=== PATIENT | female | born 1975 | race American Indian/Alaskan Native ===

== ENCOUNTER 2017-02-04 05:53 | Observation (INO) | payer BC ==
--- NOTE | 2017-01-30 13:13 | Anesthesia Consultation ---
Anesthesia Consult and Med Hx Date of service: 01/30/17 - Airway Anesthetic Teeth Evaluation: Good ROM Head & Neck: Adequate Mental/Hyoid Distance: Adequate Mallampati Class: Class II Intubation Access Assessment: Probably Good - Pulmonary Exam CTA: Yes - Cardiac Exam Cardiac Exam: RRR - Pre-Operative Health Status ASA Pre-Surgery Classification: ASA3 Proposed Anesthetic Plan: General Nerve Block: TAP - Pulmonary Hx Asthma: Yes Hx Respiratory Symptoms: Yes (Hx of PE in november) - Cardiovascular System Hx Hypertension: Yes (x 6 yrs) - Central Nervous System Hx Psychiatric Problems: No - Endocrine Hx Insulin Dependent Diabetes: Yes - Hematic Hx Anemia: Yes - Other Systems Hx Cancer: No
[2017-01-30 13:24] LABS: Basophils % (Auto) 0.6 % (0.0-1.8); Eosinophils % (Auto) 0.7 % (0.0-4.3); Hematocrit 30.6 % (30.3-42.9); Hemoglobin 10.1 gm/dl (10.1-14.3); Mean Corpuscular HGB Conc 33 % (30-34); Mean Corpuscular Hemoglobin 32 pg (28-32); Mean Corpuscular Volume 96 fl (79-97); Platelet Count 352 K/mm3 (140-440); Red Cell Distribution Width 15.4 % (13.2-15.2); White Blood Count 5.8 K/mm3 (4.5-11.0)
[2017-01-30 13:35] LABS: INR 1.04 (0.87-1.13)
[2017-01-30 13:36] LABS: Partial Thromboplastin Time 38.9 Sec. (24.2-36.6)
[2017-01-30 13:43] LABS: Blood Urea Nitrogen 12 mg/dL (7-17); Calcium 8.7 mg/dL (8.4-10.2); Carbon Dioxide 25 mmol/L (22-30); Glucose 107 mg/dL (65-100)
[2017-01-30 13:44] LABS: Anion Gap 17 mmol/L; Chloride 100.2 mmol/L (98-107); Potassium 3.2 mmol/L (3.6-5.0); Sodium 139 mmol/L (137-145)
--- NOTE | 2017-02-03 19:46 | History and Physical Report ---
History of Present Illness Date of examination: 01/30/17 Chief complaint: Excessive and frequent menstruation with irregular cycle Fibroids of uterus; Intramural Pulmonary Embolism Deep Venous Thrombosis Diabetes Hypertension Hyperlipidemia History of present illness: Past History : 2 Term Births: 2 Living Children: 2 # 1 Comments: [id number] SALES ASSISTANT DISPLAYS History Operations: [facility]'scopic IUD removal (2015) Abnormal PAP: positive Infection History Hx of STD: chlamydia Other: trich Active Medications (reviewed today): OXYCODONE-ACETAMINOPHEN 5-325 MG TABS (OXYCODONE-ACETAMINOPHEN) 1-2po q6h LEVEMIR SOLN (INSULIN DETEMIR SOLN) LOVENOX 110 MG/ML SC SOLN (ENOXAPARIN SODIUM) () bid MIRENA 20 MCG/24HR IUD (LEVONORGESTREL) insert with next PROAIR HFA AERS (ALBUTEROL SULFATE AERS) METFORMIN HCL 1000 MG TABS (METFORMIN HCL) 2 500mg tabs qd TRULICITY SOPN (DULAGLUTIDE SOPN) ATORVASTATIN CALCIUM 20 MG ORAL TABS (ATORVASTATIN CALCIUM) HYDROCHLOROTHIAZIDE 25 MG ORAL TABS (HYDROCHLOROTHIAZIDE) LOTREL 10-40 MG ORAL CAPS (AMLODIPINE BESY-BENAZEPRIL HCL) Current Allergies (reviewed today): No known allergies Past Medical History: Reviewed history from 01/01/2017 and no changes required: Diabetes, Type 2 Hyperlipidemia Hypertension Asthma Pulmonary Embolism (11/2016) Deep Veinous Thrombosis (12/15/2016) Past Surgical History: Reviewed history from 11/22/2016 and no changes required: [facility]'scopic IUD removal (2015) Family History Summary: Reviewed history and no changes required: 02/03/2017 MGF - Has Family History of Colon Cancer - dx'd 70's - Entered On: 11/01/2015 Other family member - Has No Family History of Breast Cancer - Entered On: 2015 Other family member - Has No Family History of Ovarvian Cancer - Entered On: 10/31 Other family member - Has No Family History of DVT/PE on OCP - Entered On: 2015 Other family member - Has No Family History of Biliary Tract Cancer - Entered On : 11/22/2016 Other family member - Has No Family History of Brain Cancer - Entered On: 2016 Other family member - Has No Family History of Kidney/Urinary Tract Cancer - Entered On: 11/22/2016 Other family member - Has No Family History of Pancreatic Cancer - Entered On: Other family member - Has No Family History of Stomach Cancer - Entered On: 11/22 Other family member - Has No Family History of Small Bowel Cancer - Entered On: 11/22/2016 Other family member - Has No Family History of Uterine Cancer - Entered On: 11/22 Social History: Reviewed history from 11/22/2016 and no changes required: Patient is Smoking History: Patient has never smoked. Risk Factors: Smoked Tobacco Use: Never smoker Alcohol use: no PAP Smear History: Date of Last PAP Smear: 11/22/2016 Previous Tobacco Use: Signed On 01/01/2017 Smoked Tobacco Use: Never smoker Smokeless Tobacco Use: Never Drug use: no Previous Alcohol Use: Signed On - 01/01/2017 Alcohol use: no Exercise: yes Times per week: 5 Seatbelt use: 100 % PAP Smear History: Date of Last PAP Smear: 11/22/2016 Review of Systems General Denies fever, chills, sweats, anorexia, fatigue, weakness, malaise, weight loss and sleep disorder. Complains of menorrhagia and abnormal vaginal bleeding. Denies vaginal discharge, incontinence, dysuria, hematuria, urinary frequency, amenorrhea, pelvic pain, genital sores, decreased libido, painful periods, painful sex, urinary urgency, hot flashes, vaginal dryness, vaginal itching and vaginal odor. CV Denies chest pains, palpitations, syncope, dyspnea on exertion, orthopnea, PND and peripheral edema. Resp Denies cough, dyspnea at rest, excessive sputum, hemoptysis, wheezing and pleurisy. GI Denies nausea, vomiting, diarrhea, constipation, change in bowel habits, abdominal pain, melena, hematochezia, jaundice, gas/bloating, indigestion/ heartburn, dysphagia and odynophagia. Endo Denies cold intolerance, heat intolerance, polydipsia, polyphagia, polyuria and unusual weight change. Breast Denies left breast lump, right breast lump, nipple discharge, bloody discharge from nipple, breast pain, abnormal mammogram and breast enlargement. MS Denies back pain, joint pain, joint swelling, muscle cramps, muscle weakness, stiffness, arthritis, sciatica, restless legs, leg pain at night and leg pain with exertion. Derm Denies rash, itching, dryness and suspicious lesions. Neuro Denies paralysis, paresthesias, headache, seizures, tremors, vertigo, transient blindness, frequent falls, frequent headaches and difficulty walking. Psych Denies depression, anxiety, irritability and mood swings. Eyes Denies blurring, diplopia, irritation, discharge, vision loss, eye pain and photophobia. ENT Denies earache, ear discharge, tinnitus, decreased hearing, nasal congestion, nosebleeds, sore throat and hoarseness. Allergy Denies urticaria, allergic rash, hay fever and recurrent infections. Heme Denies abnormal bruising, bleeding and enlarged lymph nodes. Physical Exam Appearance: well developed, well nourished, no acute distress Other Exams Lungs: no rales, rhonchi, or wheezes Heart: S1, S2, no murmur, rub, or gallop Abdomen: soft, non-tender, no masses, bowel sounds normal Skin: no ulcers, xanthomas Lymph: no cervical, axillary, or inguinal adenopathy Extremities: normal alignment, no joint enlargement, crepitus, masses or tenderness; normal tone and strength Genitourinary Exam Vulva: normal, no lesions or discharge Urethral meatus: normal size and location, no lesions or discharge Urethra: no discharge Bladder: no cystocele Vagina: normal appearance, no discharge, lesions. No evidence of cystocele or rectocele. Cervix: normal appearance, no lesions, no discharge Uterus: normal position, midline, mobile Adnexa: no masses or tenderness Impression & Recommendations: Problem # 1: Excessive and frequent menstruation with irregular cycle (ICD- 626.6) (PTB77-S65.1) Diagnosis explained to patient . Questions answered. Discussed with patient various medical and surgical therapies common for treatment: Hormonal/medical therapy,endometrial ablation or hysterectomy. It was extensively discussed with her that ablation/UFE may stop or decrease her bleeding however hysterectomy is the only way to stopped her from having any furhter uterine bleeding. She desires to proceed with hysterectomy. Consent reviewed and signed . Possible laparoscopy or laparotomy explained to patient. The risks and alternatives for this surgery were reviewed with the patient. She was informed of possible bleeding, infection, injury to bowel, bladder, ureters or other adjacent organs. She was informed she may require surgery later to have her ovaries removed for a benign or mailgnant condition. She was alos informed she will not be able to become after her uterus has been removed. The patient was instructed/informed the following: The normal length of hospital stay for this procedure. Nothing to eat or drink after midnight the evening prior to surgery. Clear liquids the day before surgery. Fleets enema the day prior to surgery. She was in structed to discontinue her Metformin 3days prior to the procefure and toe discontinue her Lovnox 48hours prior to the procedure( please see Dr. Joe's note). Pre-op instruction sheets given. Wound care instructions given. Infection precautions reviewed, patient to call for any signs or symptoms of infection. The usual discomforts associated with this procedure were detailed. Proper use of pain medicines was reviewed. Patient was given ample opportunity to have all her questions answered before signing informed consent. Problem # 2: Fibroids of uterus; Intramural (ICD-218.1) (HJJ46-I05.1) Diagnosis explained to patient . Questions answered. Discussed with patient various medical, surgical and radioloigal therapies common for treatment: Hormonal/medical therapy, fibroid embolization, removal of fibroids or hysterectomy. She desires to proceed with hysterectomy Problem # 3: Pulmonary Embolism (ICD-V12.55) (CKQ84-Q88.711) Problem # 4: Hypertension (ICD-401.9) (AQG04-O06) Problem # 5: Asthma (ICD-493.90) (HDN58-R22.909) Problem # 6: Hyperlipidemia (ICD-272.4) (LOL00-T19.5) Problem # 7: Diabetes, Type 2 (ICD-250.00) (FKD20-F39.9) Medications Added to Medication List This Visit: 1) Oxycodone-acetaminophen 5-325 Mg Tabs (Oxycodone-acetaminophen) .... 1-2po q6h 2) Levemir Soln (Insulin detemir soln) 3) Lovenox 110 Mg/ml Sc Soln (enoxaparin Sodium) .... Bid Prescriptions: OXYCODONE-ACETAMINOPHEN 5-325 MG TABS (OXYCODONE-ACETAMINOPHEN) 1-2po q6h #30 x 0 Entered and Authorized by: Charley Jackson MD Method used: Print then Give to Patient RxID: [id number] Medications and Allergies Allergies Allergy/AdvReac Type Severity Reaction Status Date / Time tomato Allergy severe N&V Verified 01/24/17 10:41 Home Medications Medication Instructions Recorded Confirmed Last Taken Type AtorvaSTATin [Lipitor] 20 mg PO QHS 01/30/17 01/30/17 Unknown History Enoxaparin [Lovenox] 100 mg SQ Q12HR 01/30/17 01/30/17 Unknown History Hydrochlorothiazide [HCTZ] 25 mg PO QDAY 01/30/17 01/30/17 Unknown History Insulin Detemir [Levemir] 20 units SQ DAILY 01/30/17 01/30/17 Unknown History Iron 18 mg PO QDAY 01/30/17 01/30/17 Unknown History Metformin HCl [Glucophage] 1,000 mg PO BID 01/30/17 01/30/17 Unknown History Warfarin [Coumadin] 5 mg PO QDAY 01/30/17 01/30/17 01/20/17 History amLODIPine [Norvasc] 5 mg PO DAILY 01/30/17 01/30/17 Unknown History Active Meds: Active Medications Celecoxib (Celebrex) 200 mg PO PREOP NR Stop: 02/04/17 23:59 Famotidine (Pepcid) 20 mg PO PREOP NR Stop: 02/04/17 23:59 Fentanyl (Sublimaze) 100 mcg IV ONCE NR Stop: 02/04/17 23:59 Gabapentin (Neurontin) 600 mg PO PREOP NR Stop: 02/04/17 23:59 Sodium Chloride (Nacl 0.9% 1000 Ml) 1,000 mls @ 100 mls/hr IV DIRECT OSWALDO Cefazolin Sodium (Ancef/Sterile Water 2 Gm/20 Ml) 2 gm in 20 mls @ 80 mls/hr IV PREOP NR PRN Reason: Protocol Stop: 02/04/17 23:59 Midazolam HCl (Versed) 2 mg IV PREOP NR Stop: 02/04/17 23:59 Exam Vital Signs Temp Pulse Resp BP 97.8 F 88 16 120/70 01/30/17 12:55 01/30/17 12:55 01/30/17 12:55 01/30/17 12:55 Results - Labs 01/30/17 13:05 01/30/17 13:05 Assessment and Plan - Patient Problems (1) Excessive and frequent menstruation with irregular cycle Status: Acute (2) Intramural leiomyoma of uterus Status: Acute (3) Personal history of pulmonary embolism Status: Acute (4) Essential (primary) hypertension Status: Acute (5) Uncomplicated asthma Status: Acute Qualifiers: Asthma severity: A (6) Hyperlipidemia Status: Acute Qualifiers: Hyperlipidemia type: H
[~2017-02-04 05:53] MED LIST: ANCEF/STERILE WATER 2 GM/20 ML 2 GM/20 ML SYRINGE IV NR
[2017-02-04] MEDS ORDERED: VERSED IV NR (07:00)
[2017-02-04] MEDS ORDERED: NACL 0.9% 1000 ML 1,000 ML IV SCH ×2 (07:00→14:00)
[2017-02-04] MEDS ORDERED: NEURONTIN PO NR (07:00)
[2017-02-04] MEDS ORDERED: PEPCID PO NR (07:00)
[2017-02-04] MEDS ORDERED: SUBLIMAZE IV NR (07:14)
[2017-02-04] MEDS ORDERED: XYLOCAINE MPF 2% ONE (07:28)
[2017-02-04] MEDS ORDERED: DIPRIVAN 10 MG/ML IV ONE (07:28)
[2017-02-04] MEDS ORDERED: ZEMURON IV ONE (07:28)
[2017-02-04] MEDS ORDERED: DILAUDID ONE ×2 (07:29→11:37)
--- NOTE | 2017-02-04 07:29 | Anesthesia Day of Surgery ---
Anesthesia Day of Surgery - Day of Surgery Patient Examined: Yes Patient H&P Reviewed: Yes Patient is NPO: Yes
[2017-02-04] MEDS ORDERED: MARCAINE 0.5% 0 ML INFILTRATI ONE (07:33)
[2017-02-04] MEDS ORDERED: METHYLENE BLUE ONE (07:33)
[2017-02-04] MEDS ORDERED: NEOSPORIN GU IR ONE ×2 (07:34→10:02)
[2017-02-04] MEDS ORDERED: DECADRON ONE ×2 (07:37→08:47)
[2017-02-04] MEDS ORDERED: MARCAINE-EPI/PF 0.5%-1:200,000 INFILTRATI ONE (07:37)
[2017-02-04] MEDS ORDERED: XYLOCAINE 1% 20 mL ONE (07:37)
[2017-02-04] MEDS ORDERED: CLONIDINE 1,000 MCG/10 ML VIAL EP ONE (07:37)
[2017-02-04] MEDS ORDERED: ZOFRAN ONE (08:47)
[2017-02-04] MEDS ORDERED: NACL 0.9% 100 ML ONE (09:17)
[2017-02-04] MEDS ORDERED: NACL 0.9% 1000 ML 1,000 ML ONE ×2 (09:43→12:34)
[2017-02-04] MEDS ORDERED: NEOSTIGMINE ONE (09:44)
[2017-02-04] MEDS ORDERED: ROBINUL ONE (09:44)
[2017-02-04] MEDS ORDERED: NACL 0.9% IR ONE (10:03)
[2017-02-04] MEDS ORDERED: NACL 0.9% IV ONE (10:04)
[2017-02-04] MEDS ORDERED: DILAUDID IV PRN (11:37)
--- NOTE | 2017-02-04 11:38 | Post Anesthesia Evaluation ---
- Post Anesthesia Evaluation Patient Participated: Yes Airway Patent: Yes Stable Respiratory Function: Yes Nausea/Vomiting: No Temp > 96.8F: Yes Pain Manageable: Yes Adequeate Hydration: Yes Anesthesia Complications: No Block Receding Appropriately: Not Applicable Patient on Ventilator: No
[2017-02-04] MEDS ORDERED: MORPHINE IV PRN ×3 (13:35→13:44)
[2017-02-04] MEDS ORDERED: ZOFRAN IV PRN (13:35)
[2017-02-04] MEDS ORDERED: TYLENOL PO PRN (13:35)
[2017-02-04] MEDS ORDERED: REGLAN IV PRN (13:35)
[2017-02-04] MEDS ORDERED: REGLAN PO PRN (13:35)
[2017-02-04] MEDS ORDERED: ZOFRAN PO PRN (13:35)
[2017-02-04] MEDS ORDERED: D50W (25GM) IV PRN (13:35)
[2017-02-04] MEDS ORDERED: TYLENOL PR PRN (13:35)
[2017-02-04] MEDS ORDERED: LOVENOX SUB-Q SCH (14:30)
--- NOTE | 2017-02-04 14:30 | Operative Report ---
Operative Report Operative Report: Date of procedure: 02/04/2017 Pre-operative diagnosis: 1. Menometrorrhagia 2. Uterine fibroids 3. Bilateral pulmonary emboli 4. Lower extremity DVT 5. Hypertension 6. Diabetes 7. Asthma 8. Hypercholesterolemia Post-operative diagnosis: 1. Menometrorrhagia 2. Uterine fibroids 3. Bilateral pulmonary emboli 4. Lower extremity DVT 5. Hypertension 6. Diabetes 7. Asthma 8. Hypercholesterolemia Procedure name(s): 1. Robotic-assisted total hysterectomy with bilateral salpingectomy Surgeon: Charley Jackson MD Solutions Consultant: Wendy Dobbs Anesthesia: GETA Findings: Uterus was sounded to 11 cm. She had a 5 cm right fundal subserosal fibroid and a left lower uterine segment pedunculated 5 cm fibroid. Small paratubal cysts, small right ovarian cyst. No evidence of an IUD in the intrauterine cavity. Anesthesiologist: Dr. Man Complications: None EBL: 100 mL Procedure: After risks, benefits complications, consequences, and alternatives for this procedure were discussed the patient, and she voiced understanding and desired to proceed, she was taken to the OR where general anesthesia was induced. She was placed in the dorsolithotomy position, exam under anesthesia was unremarkable. She was then prepped and draped in usual sterile fashion. A timeout was performed. Rueda catheter was introduced into the bladder. A bivalve speculum was introduced into the vagina, and the anterior lip of the cervix was grasped with a single-tooth tenaculum. The uterus was to approximately 11 cm. The cervix was progressively dilated to allow the large the V care uterine manipulator. The tenaculum and speculum were removed and the Vcare manipulator was secured in place. A solution saturated laparotomy sponge was placed in the vagina. Sterile gloves were placed and attention was turned to the abdomen. A 10 mm Optiview trocar with scope and camera attached was placed through a midline vertical incision was approximately 10 cm superior to the elevated fundus of the uterus. The trocar with camera attached was placed under direct visualization. No bowel, bladder, ureteral or major blood vessel injury was noted. The abdomen was insufflated. No evidence of the free-floating IUD was noted in the abdomen nor was there any evidence of uterine perforation. Patient was placed in steep Trendelenburg position. Additional trocars were placed in the following positions: 8 mm robotic trocars were placed in the bilateral midclavicular lower abdominal region approximately 10 cm lateral and 15 below the midline incision. An additional 5 mm trocar was placed in the right lateral lower abdominal region approximately 2 cm superior to the anterior superior iliac crest. An additional bladeless 5 mm trocar was placed under direct visualization in the right upper quadrant through an incision. Once the trocars were in the proper position the robot was engaged. The instruments were introduced into the 8 mm trochars. A 0 Vicryl was placed in the fascia of the midline incision using the lateral port and a 5 mm laparoscope and the Raymond-Gopi fascia closure device. The trocar was then reintroduced. Attention was turned to console. Pitressin 10 mL (20 units in the 100 mL's of normal saline) diffuse into the right fundal fibroid and that fibroid was removed and placed in the cul-de-sac for better visualization. The uterus was elevated, the utero-ovarian ligaments were clamped, cauterized and incised bilaterally using 30 W of energy. Then the round ligaments were clamped, cauterized and incised bilaterally. The anterior leaf of the broad ligament was elevated with both blunt and sharp dissection the bladder flap was created. Once the bladder appeared to be away from the operative field attention was turned the posterior leaf of the broad ligaments. The ligaments were elevated and dissected away from the uterine vessels. Once the outline of the Vcare uterine manipulator was visualized, the uterine vessels were clamped and cauterized bilaterally. Once blanching of the uterus was noted, and the posterior outline of the Vcare manipulator was visualized, and confirmed, colpotomy was performed down to the cup of the manipulator. This incision was extended in a circumferential manner to 9:00 and 3:00 positions. The uterine vessels were clamped, cauterized and incised. The colpotomy was completed. The uterus was then delivered through the vagina. Fibroid that was placed in the cul-de-sac was removed through the vaginal incision. Attention was turned to the adnexa. At this point the right ovarian cyst drain no bleeding was noted from the ovary. It was significantly enlarged and heavy. Decision was made to attach the ovary to avascular area of peritoneum on the pelvic sidewall to prevent torsion of the right ovary in the future. Also there was a small paratubal cyst noted attached to the tube. Bilateral salpingectomy was performed and the tubes with the cyst were removed through the vagina. The pelvis was irrigated with solution warm saline. Once hemostasis was noted the vagina was reapproximated using the V LOC 180 suture. The pelvis was again irrigated with warm normal saline. Once hemostasis was noted, Surgicel as well as Percy was applied for further hemostasis. The ureters were noted to be peristaltic and away from the operative field. The abdomen and pelvis were again visualized, no bowel, bladder , ureteral or major vascular injury was noted, hemostasis was also noted. The trocars were removed. The fascial incisions was then ligated. The skin incisions were approximated using 4-0 Vicryl in a subcuticular manner. The incisions were then sealed with Octylseal.The laparotomy sponge was removed from the vagina, and hemostasis was noted. The patient tolerated the procedure well and was taken to recovery room in stable condition. Counts were correct x3. Clear yellow urine was noted draining into the Rueda catheter was noted.
[2017-02-04] MEDS ORDERED: ANCEF/NS 1 GM/50 ML 1 GM/50 ML BAG IV SCH (15:00)
--- NOTE | 2017-02-04 20:50 | Progress Note ---
Assessment and Plan Foot removed from (L) foot, patient had an IVC filter placed yesterday Afeb vss, plan of care explained, questions answered, UO ~60mL/hr, clear, no obvious s/s bleeding Will consider restarting Lovenox tomorrow - Patient Problems (1) Excessive and frequent menstruation with irregular cycle Current Visit: Yes Status: Resolved (2) Intramural leiomyoma of uterus Current Visit: Yes Status: Resolved (3) Personal history of pulmonary embolism Current Visit: Yes Status: Acute (4) Essential (primary) hypertension Current Visit: Yes Status: Chronic (5) Uncomplicated asthma Current Visit: Yes Status: Chronic Qualifiers: Asthma severity: A (6) Hyperlipidemia Current Visit: Yes Status: Chronic Qualifiers: Hyperlipidemia type: H Subjective Date of service: 02/04/17 Patient Reports: Positive: tolerating liquids well, nausea, afebrile. Negative : vomiting, shortness of breath Narrative: c/o pain in her (L) leg d/t foot pump Objective Vital Signs - 12hr 02/04/17 02/04/17 02/04/17 11:09 11:15 11:20 Temperature 97.5 F L Pulse Rate 81 82 81 Pulse Rate [ From Monitor] Respiratory 14 17 12 Rate Blood Pressure 100/59 106/61 109/68 Blood Pressure [Right Arm] O2 Sat by Pulse 100 100 100 Oximetry 02/04/17 02/04/17 02/04/17 11:25 11:40 11:55 Temperature Pulse Rate 74 66 70 Pulse Rate [ From Monitor] Respiratory 21 14 16 Rate Blood Pressure 110/67 109/61 105/65 Blood Pressure [Right Arm] O2 Sat by Pulse 100 100 100 Oximetry 02/04/17 02/04/17 02/04/17 12:10 12:15 12:30 Temperature Pulse Rate 71 82 80 Pulse Rate [ From Monitor] Respiratory 16 17 15 Rate Blood Pressure 106/64 108/65 107/65 Blood Pressure [Right Arm] O2 Sat by Pulse 100 97 95 Oximetry 02/04/17 02/04/17 02/04/17 12:40 13:15 13:20 Temperature 97.9 F 97.9 F Pulse Rate 87 77 Pulse Rate [ 77 From Monitor] Respiratory 15 20 20 Rate Blood Pressure 116/68 114/72 Blood Pressure 114/72 [Right Arm] O2 Sat by Pulse 95 95 95 Oximetry 02/04/17 02/04/17 15:30 20:30 Temperature 97.9 F 97.7 F Pulse Rate Pulse Rate [ 72 67 From Monitor] Respiratory 18 20 Rate Blood Pressure Blood Pressure 81/55 100/67 [Right Arm] O2 Sat by Pulse 99 Oximetry - General physical appearance well developed, well nourished, no distress - Respiratory normal expansion, normal respiratory effort - Abdomen soft, bowel sounds normal - Labs 01/30/17 13:05 01/30/17 13:05
[2017-02-05] MEDS: PEPCID IV SCH ×2 (00:21→10:52)
[2017-02-05 07:52] LABS: Hematocrit 25.4 % (30.3-42.9); Hemoglobin 8.4 gm/dl (10.1-14.3)
[2017-02-05 08:06] LABS: Anion Gap 17 mmol/L; BUN/Creatinine Ratio 8.88; Blood Urea Nitrogen 8 mg/dL (7-17); Calcium 7.8 mg/dL (8.4-10.2); Carbon Dioxide 19 mmol/L (22-30); Chloride 108.3 mmol/L (98-107); Glucose 134 mg/dL (65-100); Potassium 4.1 mmol/L (3.6-5.0); Sodium 140 mmol/L (137-145)
--- NOTE | 2017-02-05 08:12 | Admit Criteria Form ---
Admission Criteria Documentation: AMBULATORY SURGERY EXCEPTION CRITERIA Ambulatory Surgery Exception Criteria ( Place 'X' for any and all applicable criteria): Surgery or procedure performed on ambulatory basis may require inpatient stay for[A] ANY ONE of the following(1)(2)(3)(4)(5)(6)(7)(8)(9): [X] I. A preoperative situation, condition, or finding that warrants inpatient stay as indicated by ANY ONE of the following: [] a) Inpatient care needed because of severity of a disease or condition rather than the surgery (eg, severe cardiac or respiratory disease, severe infection) (15) (16 ) (17) (18) [] b) Emergent procedure (eg, angioplasty for acute ischemia)(19) [] c) Complex surgical approach or situation as indicated by ANY ONE of the following(3): [] i) Open approach needed instead of usual endoscopic, transcatheter, or other less invasive procedure [] ii) Difficult approach because of previous operation [] iii) Airway monitoring required after open neck procedures(20)(21) [] iv) Large mass requiring unusually extensive dissection [] v) Additional complicating feature requiring inpatient care (eg, drain management)(22(23): [X] d) Major surgery in a pt with high anesthetic risk as indicated by ANY ONE of the following (2)(3)(5)(7)(8): [X] i) ASA risk class III or higher (severe systemic disease impairing function) [D] [] ii) Advanced age (eg, older than 85 years)(14)(24) [] iii) Symptomatic heart failure(25) [] iv) Symptomatic asthma or COPD(8)(21) [] v) Morbid obesity with hemodynamic or respiratory problems(20)( 21)(26)(27) [] vi) Obstructive sleep apnea(20)(21) [] vii) Former premature infants who are younger than 60 weeks [] viii) High risk for severe postoperative abnormalities (eg, severe postoperative hypocalcemia after parathyroidectomy for severe hyperparathyroidism)(27)( 28) [] ix) Unstable angina(25) [] e) Drug-related risk requiring inpatient stay as indicated by ANY ONE of the following(5)(10)(14)(32)(33) [] i) Procedure requires discontinuing drugs or other therapy (eg , antiarrhythmic medication, antiseizure medication), which necessitates inpatient observation or treatment.(18)(31) [] ii) Major surgery and high risk drug use as indicated by ANY ONE of the following: [] 1) Active abuse of cocaine or similar drug [] 2) Monoamine oxidase inhibitor use [] 3) Other drug identified as posing risk [] f) Inadequate outpatient care situation as indicated by ANY ONE of the following(5)(10)(14)(32)(33) [] i) Patient lives remote from medical facility and procedure has urgent complication potential, and temporary nearby residence cannot be arranged [] ii) Patient will have postprocedure incapacitation and inadequate assistance at home, or alternative level of care cannot be arranged. [] iii) Patient will have long general anesthesia or procedure side effect resolution time, and competent person to stay with patient on first postoperative night at home or alternative level of care cannot be arranged. []iv) Other inadequate outpatient situation that cannot be handled by other means [] II. A perioperative event, condition, or finding that warrants inpatient stay as indicated by ANY ONE of the following (1)(2)(3): [] a) Inadequate physiologic recovery: cardiovascular, respiratory, or hemodynamic status not normal or near preoperative baseline(18) [] b) Hemodynamic instability [] c) Patient not alert with near normal or baseline mental status [] d) Temperature not normal or as expected and not appropriate for outpatient treatment of condition [] e) Ambulatory or appropriate activity level status not yet achieved post procedure [E](34)(35)(36) [] f) Operative site not appropriate (eg, unexpected or excessive drainage or bleeding) [] g) Postoperative effects not resolved or adequately managed (eg, significant pain or vomiting not appropriate for outpatient or next level of care)(10)(12) [] h) Complicating features requiring inpatient care as indicated by ANY ONE of the following(37): [] i) Severe complications of procedure (eg, bowel injury, airway compromise, vascular injury,severe hemorrhage) [] ii) Extensive (eg, dissection far beyond usual scope of procedure ) or prolonged (eg, 120 minutes beyond usual) surgery needed requiring inpatient postoperative care [] iii) Conversion to an open or complex procedure that requires inpatient care (eg, open vs laparoscopic cholecystectomy, abdominal vs vaginal hysterectomy)(38) [] iv) Comorbid condition or test result identified during or post procedure that requires inpatient care (7) [] v) Malignant hyperthermia(30) [] vi) Other complicating feature requiring inpatient care(22)(23) Inpatient stay may be needed until ALL of the following are present (1)(2)(3)(4) (5)(6)(10)(14)(33)(40): []a) Physiologic recovery: cardiovascular, respiratory, and hemodynamic status normal or near preoperative baseline []b) Hemodynamic stability []c) Patient alert, with near normal or baseline mental status []d) Temperature appropriate: patient afebrile or temperature appropriate for outpt treatment of condition []e) Activity level appropriate: ambulatory or appropriate activity level post procedure []f) Operative site appropriate as indicated by ALL of the following: []i) Site dry or with expected drainage []ii) Any blood noted is as expected for procedure. []g) Postoperative effects resolved or managed as indicated by ALL of the following: []i) Pain management appropriate for outpatient (or next level of) care(10) []ii) Minimal nausea and vomiting: if present, successfully treated with oral medication(12) []iii) Headache, dizziness, or drowsiness (if present) are mild. []h) Voiding status acceptable as indicated by ANY ONE of the following: []i) Voiding spontaneously []ii) No voiding but instructions given for follow-up in 6 to 8 hours []iii) Urinary catheter in place, and instructions given for follow-up []i) Complicating features requiring inpatient care manageable at a lower level of care(37) []j) Comorbid conditions manageable at a lower level of care(37) The original [employer] content created by [employer] has been revised. The portions of the content which have been revised are identified through the use of italic text or in bold, and [employer] [employer] has neither reviewed nor approved the modified material. All other unmodified content is copyright [employer]. Please see references footnoted in the original [employer] edition 2016 Admission Criteria Met: Yes
--- NOTE | 2017-02-05 09:26 | Progress Note ---
Subjective Date of service: 02/05/17 Interval history: Patient seen post-op day one, satisfied with anesthesia provided, ambulating. Objective - Constitutional Vitals: Vital Signs - 12hr 02/05/17 02/05/17 02/05/17 00:29 05:20 08:00 Temperature 98.1 F 98.0 F 98.4 F Pulse Rate [ 68 62 62 From Monitor] Respiratory 18 20 18 Rate Blood Pressure 107/72 111/73 148/94 [Right Arm] O2 Sat by Pulse 98 99 95 Oximetry - Labs CBC & Chem 7: 02/05/17 06:27 02/05/17 06:27 Labs: Abnormal lab results 02/04/17 02/04/17 02/05/17 Range/Units 11:18 16:42 00:59 Hgb (10.1-14.3) gm/dl Hct (30.3-42.9) % Chloride (98-107) mmol/L Carbon Dioxide (22-30) mmol/L Glucose (65-100) mg/dL POC Glucose 220 H 189 H 139 H (70-105) Hemoglobin A1c (4-6) % Calcium (8.4-10.2) mg/dL 02/05/17 02/05/17 02/05/17 Range/Units 06:17 06:27 06:27 Hgb (10.1-14.3) gm/dl Hct (30.3-42.9) % Chloride 108.3 H (98-107) mmol/L Carbon Dioxide 19 L (22-30) mmol/L Glucose 134 H (65-100) mg/dL POC Glucose 145 H (70-105) Hemoglobin A1c 6.7 H (4-6) % Calcium 7.8 L (8.4-10.2) mg/dL 02/05/17 Range/Units 06:27 Hgb 8.4 L (10.1-14.3) gm/dl Hct 25.4 L (30.3-42.9) % Chloride (98-107) mmol/L Carbon Dioxide (22-30) mmol/L Glucose (65-100) mg/dL POC Glucose (70-105) Hemoglobin A1c (4-6) % Calcium (8.4-10.2) mg/dL
[2017-02-05 10:12] LABS: INR 1.2 (0.87-1.13)
[2017-02-05] MEDS ORDERED: LOVENOX SUB-Q SCH (12:00)
[2017-02-05 17:36] LABS: Hematocrit 28.8 % (30.3-42.9); Hemoglobin 9.1 gm/dl (10.1-14.3)
--- NOTE | 2017-02-05 18:20 | Discharge Summary ---
Providers - Providers Date of Admission: 02/04/17 11:03 Date of discharge: 02/05/17 Attending physician: DILSHAD CATALAN Hospitalization Condition: Good Procedures: RATH with (B) salpingectomy Hospital course: uncomplicated, her h/h decreased to 9.1, PT 15.8 INR 12 with anticoagulation Disposition: DC- TO HOME OR SELFCARE - Discharge Diagnoses (1) Excessive and frequent menstruation with irregular cycle Status: Resolved (2) Intramural leiomyoma of uterus Status: Resolved (3) Personal history of pulmonary embolism Status: Acute (4) Essential (primary) hypertension Status: Chronic (5) Uncomplicated asthma Status: Chronic Qualifiers: Asthma severity: A (6) Hyperlipidemia Status: Chronic Qualifiers: Hyperlipidemia type: H Core Measure Documentation - Palliative Care Palliative Care/ Comfort Measures: Not Applicable - Core Measures Any of the following diagnoses?: DVT/PE - VTE Discharge Requirements Deep Vein Thrombosis/Pulmonary Embolism Present on Admission: Yes Has pt received <5 days of overlap therapy or INR<2.0: Yes Anticoagulant overlap therapy prescribed at discharge: Yes Exam - Constitutional Vitals: Temp Pulse Resp BP Pulse Ox 98.4 F 72 18 101/66 95 02/05/17 16:00 02/05/17 16:00 02/05/17 16:00 02/05/17 16:00 02/05/17 08:00 General appearance: Present: no acute distress, well-nourished (Patient desires discharge home) - Respiratory Respiratory effort: normal Respiratory: negative: CTA - Cardiovascular Rhythm: regular - Extremities Extremities: no ischemia, No edema - Abdominal General gastrointestinal: Present: soft, normal bowel sounds (+flatus) Female genitourinary: Present: deferred (voiding without difficulty. denies vaginal bleeding) - Integumentary Integumentary: Present: clear, warm, dry - Psychiatric Psychiatric: appropriate mood/affect Plan Activity: other (no sex, no driving. ambulate on your property~1mile a day) Weight Bearing Status: Weight Bear as Tolerated Diet: low fat (eat small meal frequently. Void frequently. Use incentive spirometer every hour while awake.), low cholesterol, low salt, diabetic, no red dye, no straws, no carbonated beverages Wound: open to air, keep clean and dry Special Instructions: no heavy lifting Additional Instructions: Call your oral hygienist tomorrow to inform him your PT was 15.4 and INR was 1.2 and hemoglobin is 9.1 and you have a IVC filter placed for the surgery. Please ask your oral hygienist what dose of Lovenox you should be taking given the information stated. Also discuss resumption of other medications with your primary care provider. Restart Lovenox at 40mg SQ bid until other instructions from your oral hygienist. Please do not hesitate to call my office for any problems or concerns. Follow up with: JESS PHILIP [Other] - 7 Days TOMAS CHING MD [Staff Physician] - 7 Days TIFFANIE BOWMAN MD [Referring] - 7 Days DILSHAD CATALAN MD [Staff Physician] - (as scheduled)
[2017-02-06 07:08] VITALS: BP 101/66
== END 2017-02-05 19:59 | disposition home or self-care (01) ==
LOC: OR 05:53 → 2B-SURG 11:03
PROVIDERS: ADMIT Obstetrics & Gynecology; ATTEND Obstetrics & Gynecology
DX: N92.1 Excessive and frequent menstruation with irregular cycle (principal); D25.1 Intramural leiomyoma of uterus; I26.99 Other pulmonary embolism without acute cor pulmonale; I82.409 Acute embolism and thrombosis of unspecified deep veins of unspecified lower extremity; E78.00 Pure hypercholesterolemia, unspecified; I10 Essential (primary) hypertension; E11.9 Type 2 diabetes mellitus without complications; E78.5 Hyperlipidemia, unspecified; J45.909 Unspecified asthma, uncomplicated; Z86.711 Personal history of pulmonary embolism; Z90.79 Acquired absence of other genital organ(s); Z90.710 Acquired absence of both cervix and uterus
CPT/HCPCS: 36415; 58571; 80048; 81025; 82962; 83036; 85014; 85018; 85025; 85610; 85730; 86850; 86900; 86901; 88305; 88307; 96365; 96372; 96375; 96376; A4217; G0378; J0690; J0735; J1100; J1170; J2250; J2270; J2405; J2704; J2710; J3010; J7030; S2900; 88304; J1815; Q9968

== ENCOUNTER 2018-01-08 08:17 | Outpatient (CLI) | payer BC ==
--- NOTE | 2018-01-08 13:11 | Mammography Report ---
BILATERAL DIGITAL SCREENING MAMMOGRAM WITH CAD:01/08/18 08:15:00 CLINICAL: Baseline screening. FINDINGS: The breasts are mostly fatty. A left asymmetry with architectural distortion on the CC view requires additional imaging. There is questionable correlation on MLO view. No suspicious calcifications. The right breast is negative. IMPRESSION: Left asymmetry and architectural distortion requiring further workup. BI-RADS CATEGORY: 0 -- Needs Additional Imaging RECOMMENDATION: Recall for left lateralmedial and spot magnification CC views and left breast ultrasound if needed. ACR BI-RADS MAMMOGRAPHIC CODES: 0 = Needs additional imaging evaluation; 1 = Negative; 2 = Benign; 3 = Probably benign; 4 = Suspicious; 5 = Malignant; 6 = Known biopsy-proven malignancy COMMENT: 1. Dense breast tissue, i.e., adenosis, fibrocystic changes, etc., may obscure an underlying neoplasm. 2. Approximately 10% of cancers are not detected with mammography. 3. A negative mammography report should not delay biopsy if a clinically suspicious mass is present.
== END 2018-01-08 08:18 | disposition home or self-care (01) ==
LOC: MAMMO 08:17
PROVIDERS: ATTEND Obstetrics & Gynecology
DX: Z12.31 Encounter for screening mammogram for malignant neoplasm of breast (principal)
CPT/HCPCS: 77067

== ENCOUNTER 2020-11-22 14:48 | Outpatient (CLI) | payer BC ==
--- NOTE | 2020-11-22 19:22 | Mammography Report ---
DIGITAL SCREENING MAMMOGRAM WITH CAD, 11/22/2020 CLINICAL INFORMATION / INDICATION: Routine screening TECHNIQUE: Digital bilateral 2D mammography was obtained in the craniocaudal and mediolateral obliqu e projections. This examination was interpreted with the benefit of Computer-Aided Detection analysis . COMPARISON: 01/08/2018 FINDINGS: Breast Density: The breasts are almost entirely fatty. No dominant mass, suspicious calcifications, or architectural distortion in either breast. Benign-appearing left calcifications are stable. IMPRESSION: No mammographic evidence of malignancy. Follow up recommendation: Routine yearly BI-RADS Category 2: Benign. A "normal" or negative report should not discourage follow up or biopsy of a clinically significant f inding. A written summary of these findings will be mailed to the patient. The patient will be entered into a mammography reporting system which will generate a reminder letter for the patient's next appointmen t at the appropriate interval. The [employer] recommends yearly mammograms starting at age 40 and continuing as l mely as a woman is in good health. Breast MRI is recommended for women with an approximate 20-25% or greater lifetime risk of breast cancer, including women with a strong family history of breast or ova evangelina cancer or who have been treated for Hodgkin's disease. Signer Name: Eren Oden MD Signed: 11/22/2020 7:17 PM Workstation Name: [id number]
== END 2020-11-22 14:49 | disposition home or self-care (01) ==
LOC: MAMMO 14:48
PROVIDERS: ATTEND Obstetrics & Gynecology
DX: Z12.31 Encounter for screening mammogram for malignant neoplasm of breast (principal); N64.89 Other specified disorders of breast
CPT/HCPCS: 77067